=== PATIENT | male | born 1940 | race American Indian/Alaskan Native ===

== ENCOUNTER 2017-08-29 10:47 | Emergency (ER) | payer MEDICARE, OTHER ==
[2017-08-29 11:07] VITALS: BMI 28.0
[2017-08-29 11:10] VITALS: RESP 18; TEMP 98.3
--- NOTE | 2017-08-29 11:29 | ED PDOC ---
Arrival/HPI - General Historian: Patient, Caregiver - History of Present Illness Time/Duration: 1 week Symptom Onset: Gradual Symptom Course: Worsening Quality: Unable to Describe Severity Level: 4 <Alma Thomas - Last Filed: 08/29/17 21:24> <Thony Ponce - Last Filed: 08/31/17 19:28> - General Chief Complaint: Back Pain Time Seen by Provider: 08/29/17 11:06 - History of Present Illness Narrative History of Present Illness (Text): Note: History taken from patient and caregiver. Patient does have a history of Dementia so HPI is limited. This patient is a 77 year old male with a PMHx of CVA, dementia, syncopal episode, a-fib, HTN, and seizures. Per home health aide, patient has been complaining of 4/10 back pain for the last week. Patient lives alone and the home health aide noticed that he has been getting around the house slower than usual. Patient has taken Tylenol and Ibuprofen to help with the pain without success. He states the pain is aggravated when he stands from a sitting position. He is unable to identify any relieving factors. He does say the pain radiates down the back of his right leg. He denies any bowel/urinary incontinence, saddle anaesthesia, abdominal pain, muscle weakness, or sensory loss. He also denies any fall or trauma. ROS POSITIVES: lumbar pain with radiation down the right leg. NEGATIVES: bowel incontinence, urinary incontinence, saddle anaesthesia, abdominal pain, muscle weakness, sensory loss, fall, trauma, chest pain, SOB, abdominal pain, fevers, chills PMHx: Stroke, back pain, non-specific cardiac abnormalities, syncopal episode, a -fib, HTN, Seizures. PSHx: Denies Allergies: NKDA SocialHx: occasional drinker, admits to 2 packs a day for 50 years, denies illicit drug use Hos: Was hospitalized at unknown hospital this year for syncopal episode FamHx: Unknown Meds: Reviewed PMD: Dr. Cavanaugh. (Alma Thomas) Past Medical History - Provider Review Nursing Documentation Reviewed: Yes - Infectious Disease Hx of Infectious Diseases: None - Cardiac Hx Atrial Fibrillation: Yes Hx Hypertension: Yes - Neurological HX Cerebrovascular Accident: Yes Hx Dementia: Yes Hx Seizures: Yes - Endocrine/Metabolic Hx Hyperthyroidism: Yes - Psychiatric Hx Substance Use: No - Anesthesia Hx Anesthesia: No <Moses Thomasameya - Last Filed: 08/29/17 21:24> Family/Social History - Physician Review Nursing Documentation Reviewed: Yes Family/Social History: Unknown Family HX Smoking Status: Never Smoked Hx Alcohol Use: Yes Frequency of alcohol use: Socially Hx Substance Use: No <Alma Thomas - Last Filed: 08/29/17 21:24> Allergies/Home Meds <Alma Thomas - Last Filed: 08/29/17 21:24> <Thony Ponce - Last Filed: 08/31/17 19:28> Allergies/Adverse Reactions: Allergies No Known Allergies Allergy (Verified 08/29/17 11:07) Home Medications: Home Meds Medication Instructions Recorded Confirmed Apixaban [Eliquis] 1 tab PO Q12H 08/29/17 08/29/17 Atorvastatin [Lipitor] 1 tab PO HS 08/29/17 08/29/17 Cinacalcet [Sensipar] 1 tab PO BID 08/29/17 08/29/17 Divalproex [Depakote Sprinkles] 125 mg PO Q8H 08/29/17 08/29/17 Enalapril Maleate [Vasotec] 1 tab PO DAILY 08/29/17 08/29/17 Memantine [Namenda] 5 mg PO DAILY 08/29/17 08/29/17 Metoprolol Succinate [Toprol XL] 1 tab PO BID 08/29/17 08/29/17 Propylthiouracil [Propylthiouracil] 1 tab PO Q8H 08/29/17 08/29/17 Review of Systems - Physician Review All systems were reviewed & negative as marked: Yes (As per HPI) - Review of Systems Respiratory: Normal. absent: SOB Cardiovascular: Normal. absent: Chest Pain <Alma Thomas - Last Filed: 08/29/17 21:24> Physical Exam Vital Signs Reviewed: Yes Temperature: Afebrile Blood Pressure: Normal Pulse: Regular Respiratory Rate: Normal Appearance: Positive for: Well-Appearing Pain Distress: Moderate Mental Status: Positive for: Confused - Systems Exam Head: Present: Atraumatic, Normocephalic Extroacular Muscles: Present: EOMI Conjunctiva: Present: Normal Ears: Present: Normal Nose (External): Present: Atraumatic Respiratory/Chest: Present: Clear to Auscultation, Good Air Exchange. No: Wheezes, Rales, Rhonchi Cardiovascular: Present: Normal S1, S2, Irregular Rhythm. No: Regular Rate and Rhythm, Murmurs Abdomen: Present: Normal Bowel Sounds. No: Tenderness, Mass/Organomegaly Back: Present: Pain with Leg Raise (Positive straight leg test on right side. ) . No: Paraspinal Tenderness Upper Extremity: Present: Capillary Refill < 2s Lower Extremity: No: NORMAL PULSES (+1) Neurological: Present: Speech Normal, Normal Sensory Function, Gait Normal. No : Memory Normal Psychiatric: Present: Alert, Normal Affect, Normal Mood <Alma Thomas - Last Filed: 08/29/17 21:24> Vital Signs Temp Pulse Resp BP Pulse Ox 08/29/17 21:32 70 18 118/78 100 08/29/17 17:00 67 18 123/66 99 08/29/17 15:20 69 18 125/65 98 08/29/17 11:09 98.3 F 74 18 128/64 98 Medical Decision Making - Lab Interpretations I have reviewed the lab results: Yes - RAD Interpretation [employer] Developer: Radiologist - EKG Interpretation Interpreted by ED Physician: Yes Type: 12 lead EKG <Alma Thomas - Last Filed: 08/29/17 21:24> <Thony Ponce - Last Filed: 08/31/17 19:28> ED Course and Treatment: 77 year old male with a PMHx of CVA, dementia, syncopal episode, a-fib, HTN, and seizures presents with lower back pain x 1 week. --CT Abd/Pelvis w/ IV Contrast --CBC/CMP --UA --Toradol 10 IVP --Reassess and Disposition Reassessment --EKG: A-fib with no acute ST/T wave elevations. --CMP: WNL --CBC: Unremarkable --UA: Pending --CT Abd/Pelvis w/ IV contrast: Pending --Reassess and Disposition Reassessment II: CT Abd/Pelvis w/ IV Contrast, read by Dr. Usha Shaffer: Markedly enlarged prostate gland. Recommend correlation with PSA. Right renal scarring. Exophytic 2.2 cm right lower pole renal hypodensity measures approximately 15 HU, indeterminate, possibly cystic; renal ultrasound may be considered for further assessment. Additional too small to characterize renal hypodensities noted. Hypoattenuation of the liver compatible with hepatic steatosis. Moderate to large hiatal hernia. BONES: No acute osseous abnormality is detected. Disposition: Will discuss results with Goddaugter (Yvette Zaragoza). Patient will need outpatient follow up for abnormal prostate and kidney findings. Patient is stable for discharge and is ambulatory with and without cane. Discussed importance of following up with primary physician with patient and goddaughter together. (Alma Thomas) Prior to dc the pts initially antalgic gait had markedly improved and he was ambulating around the ED by himself without difficulty. His goddaughter came to pick him up- results disc w her and she is comfortable with taking him home. (Thony Ponce) - Lab Interpretations Lab Results: 08/29/17 12:24 08/29/17 12:24 Lab Results 08/29/17 12:24: Sodium 141, Potassium 3.7, Chloride 102, Carbon Dioxide 28, Anion Gap 15, BUN 20, Creatinine 1.2, Est GFR ( Amer) > 60, Est GFR (Non- Af Amer) 58, Random Glucose 99, Calcium 8.7, Total Bilirubin 1.2, AST 18, ALT 19 , Alkaline Phosphatase 49, Total Protein 7.3, Albumin 4.1, Globulin 3.2, Albumin /Globulin Ratio 1.3 08/29/17 12:24: WBC 6.4, RBC 4.26, Hgb 13.7 L, Hct 40.8 L, MCV 95.8, MCH 32.2, MCHC 33.6, RDW 14.3, Plt Count 155, MPV 10.2, Gran % 64.7, Lymph % (Auto) 22.4, [place] % (Auto) 7.4 H, Eos % (Auto) 5.2 H, Baso % (Auto) 0.3, Gran # 4.14, Lymph # 1.4, [place] # 0.5, Eos # 0.3, Baso # 0.02 - RAD Interpretation Radiology Orders: 08/29/17 12:11 ABD & PELVIS IV CONTRAST ONLY [CT] Stat - Medication Orders Current Medication Orders: Discontinued Medications Ketorolac Tromethamine (Toradol) 10 mg IVP STAT STA Stop: 08/29/17 12:12 Last Admin: 08/29/17 12:28 Dose: 10 mg MAR Pain Assessment Document 08/29/17 12:28 GMD (Rec: 08/29/17 12:28 [place] [facility] [id number] Pain Reassessment Is this a pain reassessment? No Sleep Is patient sleeping during reassessment? No Presence of Pain Presence of Pain Yes Location Pain Location Body Site Back IVP Administration Document 08/29/17 12:28 GMD (Rec: 08/29/17 12:28 [place] [facility] [place] [id number] Charges for Administration # of IVP Administrations 1 - PA / AURIST / Resident Statement / has reviewed & agrees with the documentation as recorded. / has examined the patient and agrees with the treatment plan. <Thony Ponce - Last Filed: 08/31/17 19:28> Disposition/Present on Arrival - Present on Arrival Any Indicators Present on Arrival: No History of DVT/PE: No History of Uncontrolled Diabetes: No Urinary Catheter: No History of Decub. Ulcer: No History Surgical Site Infection Following: None - Disposition Have Diagnosis and Disposition been Completed?: Yes Disposition Time: 21:25 Patient Plan: Discharge <Alma Thomas - Last Filed: 08/29/17 21:24> <Thony Ponce - Last Filed: 08/31/17 19:28> - Disposition Diagnosis: Back pain of lumbar region with sciatica Disposition: HOME/ ROUTINE Condition: STABLE Discharge Instructions (ExitCare): Back Pain (ED) Additional Instructions: Please follow up with your primary medical physician (Dr. Cavanaugh) as soon as possible for a follow up evaluation. You had abnormal findings on the kidney and the prostate. Your primary care doctor will need to follow up these results. Referrals: [facility] Alek Rechapo, [Non-Staff] - Follow up with primary Forms: [employer] (Amharic)
[2017-08-29 12:36] LABS: BASO # 0.02 K/mm3 (0.0-2.0); BASO % 0.3 % (0.0-3.0); EOS # 0.3 (0.0-0.7); EOS % 5.2 % (1.5-5.0); GRAN # 4.14 (1.4-6.5); GRAN % 64.7 % (50.0-68.0); HEMATOCRIT 40.8 % (42.0-52.0); LYMPH # 1.4 (1.2-3.4); LYMPH % 22.4 % (22.0-35.0); MEAN CELL VOLUME 95.8 fl (80.0-105.0); MEAN CORPUSCULAR HEMOGLOBIN 32.2 pg (25.0-35.0); MEAN CORPUSCULAR HGB CONC 33.6 g/dl (31.0-37.0); MEAN PLATELET VOLUME 10.2 fl (7.0-11.0); MONO # 0.5 (0.1-0.6); MONO % 7.4 % (1.0-6.0); RED CELL DISTRIBUTION WIDTH 14.3 % (11.5-14.5); WHITE BLOOD COUNT 6.4 10^3/ul (4.5-11.0)
[2017-08-29 13:22] LABS: ALB/GLOB RATIO 1.3 (1.1-1.8); ALKALINE PHOSPHATASE 49 U/L (38-126); ALT/SGPT 19 U/L (7-56); AST/SGOT 18 U/L (17-59); BILIRUBIN,TOTAL 1.2 mg/dL (0.2-1.3); BLOOD UREA NITROGEN 20 mg/dL (7-21); CALCIUM 8.7 mg/dL (8.4-10.5); CARBON DIOXIDE 28 mmol/L (21-33); CHLORIDE 102 mmol/L (98-107); GFR AFRICAN-AMERICAN > 60; GLUCOSE,RANDOM 99 mg/dL (70-110); TOTAL PROTEIN 7.3 g/dL (5.8-8.3)
[2017-08-29 13:23] LABS: POTASSIUM 3.7 mmol/L (3.6-5.0); SODIUM 141 mmol/L (132-148)
--- NOTE | 2017-08-29 17:18 | CT ---
PROCEDURE: CT Abdomen and Pelvis with contrast HISTORY: Back pain. COMPARISON: None available TECHNIQUE: Contrast dose: 150 mL Omnipaque 350 Radiation dose: Total exam DLP = 762.64 MGy-cm. This CT exam was performed using one or more of the following dose reduction techniques: Automated exposure control, adjustment of the mA and/or kV according to patient size, and/or use of iterative reconstruction technique. FINDINGS: LOWER THORAX: No visible consolidation, pleural effusion, or pneumothorax. Moderate to large hiatal hernia. LIVER: Hypoattenuation of the liver compatible with hepatic steatosis. GALLBLADDER AND BILE DUCTS: Unremarkable. PANCREAS: Unremarkable. SPLEEN: Unremarkable. ADRENALS: Unremarkable. KIDNEYS AND URETERS: The kidneys enhance symmetrically. No hydronephrosis or obstructing calculus identified. Right renal scarring. Exophytic 2.2 cm right lower pole renal hypodensity measures approximately 15 HU, indeterminate. Additional too small to characterize renal hypodensities noted. VASCULATURE: Dense atherosclerotic calcifications. No aortic aneurysm. BOWEL: Stomach is nondistended. Lack of oral contrast limits evaluation for bowel pathology. Bowel loops appear within normal limits of caliber without evidence of obstruction. APPENDIX: The presumed appendix appears within normal limits of caliber. No secondary signs of acute appendicitis. PERITONEUM: No significant free fluid. No definite free air. LYMPH NODES: No bulky adenopathy identified. BLADDER: Unremarkable. REPRODUCTIVE: The prostate gland is enlarged measuring approximately 6.9 x 8.0 cm. BONES: No acute osseous abnormality is detected. OTHER FINDINGS: Fat containing bilateral inguinal hernias. IMPRESSION: Markedly enlarged prostate gland. Recommend correlation with PSA. Right renal scarring. Exophytic 2.2 cm right lower pole renal hypodensity measures approximately 15 HU, indeterminate, possibly cystic; renal ultrasound may be considered for further assessment. Additional too small to characterize renal hypodensities noted. Hypoattenuation of the liver compatible with hepatic steatosis. Moderate to large hiatal hernia. Additional findings as above.
--- NOTE | 2017-08-29 17:57 | CARD ---
APPROVED REPORT EKG Measurement Heart [id number] <Conclusion> Atrial fibrillation with slow ventricular response Moderate voltage criteria for LVH, may be normal variant Cannot rule out Septal infarct, age undetermined Abnormal ECG
[2017-08-29 21:33] VITALS: BP 118/78; PULSE 70; O2SAT 100
== END 2017-08-29 21:33 | disposition home or self-care (01) ==
LOC: MERGE 10:47 → ED 10:47
DX: M54.40 Lumbago with sciatica, unspecified side (principal); I10 Essential (primary) hypertension; Z86.73 Personal history of transient ischemic attack (TIA), and cerebral infarction without residual deficits
CPT/HCPCS: 74177; 80053; 85025; 93005; 96374; 99285; J1885; Q9967